=== PATIENT | male | born 1955 | race Caucasian/White ===

== ENCOUNTER 2018-04-04 08:16 | Inpatient (IN) | payer OTHER ==
[~2018-04-04] VITALS: Ht 170.2 cm; Wt 99.3 kg
[2018-04-04] MEDS ORDERED: ELIQUIS5 MG PO ×2 (09:20→09:23)
[2018-04-04] MEDS ORDERED: TOPROL XL25 MG PO (09:20)
[2018-04-04] MEDS ORDERED: LIPITOR 20 MG T20 M1 PO (09:22)
[2018-04-04] MEDS ORDERED: CARTIA XT240 M1 PO (09:24)
[2018-04-04 09:25] VITALS: BP 137/86
[2018-04-04 09:46] LABS: ALBUMIN 3.8 g/dL (3.4-5.0); ALKALINE PHOSPHATASE 91 U/L (46-116); ANION GAP 3 mmol/L (7-16); BUN 17 mg/dL (7-18); CALCIUM 9.1 mg/dL (8.5-10.1); CHLORIDE 108 mmol/L (98-107); CHOLESTEROL 169 mg/dL (<200); CO2 30 mmol/L (21-32); CREATININE 1.1 mg/dL (0.6-1.3); DIRECT BILIRUBIN 0.1 mg/dL (<0.1-0.3); GLUCOSE 102 mg/dL (70-99); HDL CHOLESTEROL 41 mg/dL (>40); LDL CHOLESTEROL 107 mg/dL (<100); POTASSIUM 4.8 mmol/L (3.5-5.1); SGOT 26 U/L (15-37); SGPT 35 U/L (30-65); SODIUM 141 mmol/L (136-145); TC:HDL 4.1 Ratio (Not establshd); TOTAL BILIRUBIN 0.8 mg/dL (<0.1-1.0); TOTAL PROTEIN 7.4 g/dL (6.4-8.2); TRIGLYCERIDE 107 mg/dL (<150); VLDL 21 mg/dL (<40)
[2018-04-04 09:47] LABS: SERUM ASSESSMENT Clear
[2018-04-04 16:00] VITALS: BP 95/58
--- NOTE | 2018-04-04 17:36 | NUR ---
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
[2018-04-04 20:00] VITALS: BP 108/72
[2018-04-05] VITALS: BP 123/69
[2018-04-05 04:00] VITALS: BP 106/80
--- NOTE | 2018-04-05 05:23 | NUR ---
ASSUMED PT CARE AT 1930, PT IS A&OX4, PT IS TRACING AFIB ON THE MONTIOR, ON RA SATTING MID TO HIGH 90'S PT IS UP AD MICHAELA IN HIS ROOM APPEARS TO BE STABLE ON HIS FEET. PT DENIES ANY PAIN OR NEEDS AT THIS TIME. BED IN LOW POSITON, CALL LIGHT IN REACH, HOURLY ROUNDING COMPLETED FOR PT SAFETY.
[2018-04-05 08:00] VITALS: BP 138/75
[2018-04-05 12:00] VITALS: BP 120/79
--- NOTE | 2018-04-05 13:37 | EKG ---
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1955 Requested By: Avila Miller Order Number: [id number] Reading MD: Mateo Urbina Measurements Intervals [place] Rate: 81 P: [place]: QRS: -20 QRSD: 109 T: -50 QT: 363 QTc: 422 Interpretive Statements Atrial fibrillation Ventricular premature complex Borderline left axis deviation Low voltage, precordial leads RSR' in V1 or V2, probably normal variant Borderline T abnormalities, diffuse leads No previous ECG available for comparison Electronically Signed On 04-05-2018 13:37:31 CDT by Mateo Urbina [email or web address] <ELECTRONICALLY SIGNED> By: Mateo Urbina MD, [facility] 04/05/18 1337 0958 [id number] Mateo Urbina MD, [facility] /EPI
--- NOTE | 2018-04-05 14:32 | EKG ---
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1955 Requested By: Avila Miller Order Number: [id number] Reading MD: Mateo Urbina Measurements Intervals [place] Rate: 87 P: [place]: QRS: -30 QRSD: 109 T: -25 QT: 379 QTc: 456 Interpretive Statements Atrial fibrillation Left axis deviation Low voltage, precordial leads RSR' in V1 or V2, probably normal variant Borderline T abnormalities, diffuse leads No previous ECG available for comparison Electronically Signed On 04-05-2018 14:31:58 CDT by Mateo Urbina [email or web address] <ELECTRONICALLY SIGNED> By: Mateo Urbina MD, FACC 04/05/18 1431 0849 0849 Mateo Urbina MD, [facility] /EPI
--- NOTE | 2018-04-05 14:58 | NUR ---
MET WITH PT TO DISCUSS HOME SITUATION/DC PLANNING. PT LIVES WITH SPOUSE, IS ACTIVE AND INDEPENDENT. DOESN'T USE ANY DME OR HH. HE PLANS TO RETURN HOME AT DC. WILL FOLLOW
--- NOTE | 2018-04-05 18:46 | NUR ---
JAYY RESTING IN BED. UP AD MICHAELA. VITAL SIGNS STABLE. PATIENT IN NOAPPARENT DISTRESS AT THIS TIME. AMIODARONE LOADING IN PREPARATION OF A HAJA CARDIOVERSION ON WEDNESDAY. HOURLY ROUNDING COMPLETED FOR PATIENT SAFETY.
[2018-04-05 20:29] VITALS: BP 109/74
[2018-04-06] VITALS (15 sets, daily range): BP systolic 93–134; BP diastolic 64–96
--- NOTE | 2018-04-06 06:45 | NUR ---
Pt NPO since MN for HAJA cardioversion scheduled for today. Reports he had little sleep overnight (water line repairs from [id number] overnight). VSS. Remains in Afib per monitor, rate 70s. No complaints. Will continue to monitor.
--- NOTE | 2018-04-06 10:00 | NUR ---
RECEIVED REPORT FROM ALETA AND ASSUMED CARE OF PT @ 7288.PT IS A/O,VSS,TRACING AFIB ON THE MONITOR.LUNG SOUNDS ARE CLEAR.LAST BM WAS YESTERDAY.IV RIGHT FOREARM PATENT AND SALINE LOCKED.PT IS CALM AND COOPERATIVE WITH NO C/O PAIN AT TIME OF ASSESSMENT.UP AD MICHAELA IN ROOM.CALL LIGHT WITHIN REACH.NPO STATUS MAINTAINED.PT WAITING FOR HAJA PROCEDURE THIS AFTERNOON.PT LEFT RESTING IN RECLINER.WILL CONTINUE TO MONITOR.
--- NOTE | 2018-04-06 16:41 | TEE ---
[facility] [address] [place] [address] TRANSESOPHAGEAL ECHOCARDIOGRAM Name: TODD GRAY Room: [address] IN [facility]#: [id number] Admission: 04/04/18 Attend Phys: Abran Farr Discharge: Date of : 51 Date of Service: 04/06/18 1641 Report #: [id number] THIS REPORT FOR: //name// APPROVED REPORT Study performed: 04/06/2018 14:55:41 EXAM: Transesophageal Echocardiogram Patient Location: In-Patient Room #: [facility] Status: routine BSA: 2.10 HR: 74 bpm BP: 102/67 mmHg Rhythm: Atrial Fibrillation Other Information Study Quality: Good Indications Atrial Fibrillation Echo Enhancing Agent Indication: Rule out Shunt Agent(s) / Amount(s) Used: Agitated Saline 10 cc Procedure After obtaining informed consent, patient underwent transesophageal echo in the [employer]. Type of Sedation : Conscious Sedation Sedation was administered by Jillian Perez RN. Sedation start time: 1504 Case end Time: 1520 Sedation was achieved intravenously with: Versed (4) Fentanyl (50) Transesophageal probe was inserted and advanced into esophagus without difficulty by Mateo Urbina MD, FACC. Echo enhancement indication: R/O Septal defect. Echo enhancement agent administered: Agitated Saline The HAJA was performed without complications. Synchronized Cardioversion acheived with 300 Joules after 2 attempt(s). Rhythm following Synchronized Cardioversion: Normal Sinus Rhythm Throughout the procedure, the blood pressure, pulse oximetry, cardiac rhythm, and rate were monitored. The patient tolerated the procedure without adverse effects. Recovery [address] [address] TRANSESOPHAGEAL ECHOCARDIOGRAM Name: TODD GRAY Room: [address] IN [facility].#: [id number] Admission: 04/04/18 Attend Phys: Abran Farr Discharge: Date of : 51 Date of Service: 04/06/18 1641 Report #: [id number] from conscious sedation was uneventful and vital signs were stable. Left Ventricle The left ventricle is normal size. There is normal LV segmental wall motion. There is normal left ventricular wall thickness. Left ventricular systolic function is normal. The left ventricular ejection fraction is within the normal range. No left ventricle thrombus noted on this study. LVEF is 50-55%. Right Ventricle The right ventricle is normal size. The right ventricular systolic function is normal. Atria Left atrium is dilated. No thrombus is visualized in the left atrium or appendage. Interatrial septum is intact without evidence of ASD or PFO.Negative bubble study. Right atrium is dilated. Aortic Valve The aortic valve is normal in structure. No aortic regurgitation is present. There is no aortic valvular vegetation. There is no aortic valvular stenosis. Mitral Valve The mitral valve is normal in structure. Trace mitral regurgitation. There is no evidence of mitral valve vegetations. No evidence of mitral valve stenosis. There is no evidence of mitral valve prolapse. Tricuspid Valve The tricuspid valve is normal in structure. There is no tricuspid valve regurgitation noted. There is no tricuspid valve vegetations. Pulmonic Valve The pulmonary valve is normal in structure. There is no pulmonic valvular regurgitation. There is no pulmonic valve vegetations. Great Vessels The aortic root is normal in size. Pericardium There is no [place] [address] TRANSESOPHAGEAL ECHOCARDIOGRAM Name: TODD GRAY Room: [address] IN ..#: [id number] Admission: 04/04/18 Attend Phys: Abran Farr Discharge: Date of : 51 Date of Service: 04/06/181640 Report #: [id number] <Conclusion> LVEF is 50-55%. There is normal LV segmental wall motion. Left atrium is dilated. No thrombus is visualized in the left atrium or appendage. Interatrial septum is intact without evidence of ASD or PFO.Negative bubble study. <ELECTRONICALLY SIGNED> By: Mateo Urbina MD, FACC 04/06/181640 40 1641 Mateo Urbina MD, FACC /INF
--- NOTE | 2018-04-06 18:16 | NUR ---
VSS,CARDIAC MONITORING IN PLACE NOW TRACING SR AFTER HAJA CARDIOVERSION.PT PROGRESSING TOWARDS GOALS.DENIED PAIN.PT NOW ON REGULAR DIET WITH NO COMPLICATIONS EATING AFTER HAJA PROCEDURE.PT INFORMED OF PLAN OF CARE AND COMMUNICATES UNDERSTANDING.HOURLY ROUNDING COMPLETED FOR PT SAFETY.CALL LIGHT WITHIN REACH.WILL CONTINUE TO MONITOR FOR DURATION OF SHIFT.
[2018-04-07] VITALS: BP 101/67
[2018-04-07 04:00] VITALS: BP 113/77
--- NOTE | 2018-04-07 06:26 | NUR ---
Pt reports he slept "on and off" overnight. VSS. SB-SR per monitor. Reports he is hopeful of being discharged today. Will continue to monitor.
[2018-04-07 07:40] VITALS: BP 125/66
[2018-04-07 09:20] VITALS: BP 125/66
--- NOTE | 2018-04-07 09:53 | NUR ---
RECEIVED REPORT FROM ALETA AND ASSUMED CARE OF PT @ 1178.PT IS A/O,VSS,TRACING SR WITH 1ST DEGREE ON THE MONITOR.LUNG SOUNDS ARE CLEAR DIMINSHED.LAST BM WAS YESTERDAY.IV REMOVED DUE TO INFILTRATION.PT IS CALM AND COOPERATIVE WITH NO C/O PAIN AT TIME OF ASSESSMENT.UP AD MICHAELA IN ROOM.PT LEFT RESTING IN BED WITH CALL LIGHT WITHIN REACH.WILL CONTINUE TO MONITOR.METOPROLOL HELD DUE TO LOW HEART RATE. PT OK FOR DISCHARGE PER CARDIOLOGY.
--- NOTE | 2018-04-07 10:20 | NUR ---
PT OK FOR DISCHARGE.PAPERWORK COMPLETED AND GIVEN TO PT.IV REMOVED THIS AM.HEART MONITOR REMOVED AND RETURNED TO NURSING STATION.FOLLOW UP APPOINTMENTS SCHEDULED WITH CARDIOLOGY.ALL PERSONAL BELONGINGS PACKED AND TAKEN WITH PT.PT WHEELED OUT WIHT BY NURSING STAFF TO PERSONAL VEHICLE.
[2018-04-07] MEDS ORDERED: AMIODARONE HCL100 MG PO (10:29)
--- NOTE | 2018-04-07 12:58 | EKG ---
[place] [address] ELECTROCARDIOGRAM REPORT Name: TODD GRAY Room: [address] IN [facility]#: [id number] Admission: 04/04/18 Attend Phys: Avila Miller MD, Discharge: 04/07/18 Date of : 51 Report #: [id number] THIS REPORT FOR: //name// 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1955 Requested By: Avila Miller Order Number: [id number] Reading MD: Avila Miller Measurements Intervals [place] Rate: 76 P: [place]: QRS: -37 QRSD: 112 T: -22 QT: 428 QTc: 482 Interpretive Statements Atrial fibrillation Borderline IVCD with LAD Low voltage, precordial leads RSR' in V1 or V2, right VCD Borderline T abnormalities, inferior leads Borderline prolonged QT interval Compared to ECG 04/05/2018 08:49:09 Left-axis deviation no longer present T-wave abnormality still present Electronically Signed On 04-07-2018 12:58:31 CDT by Avila Miller [email or web address] <ELECTRONICALLY SIGNED> By: Avila Miller MD, FAC 04/07/18 1258 1112 1112 Avila Miller MD, [facility] /EPI
--- NOTE | 2018-04-07 13:34 | CARD ---
[facility] [address] [place] [address] CARDIAC CATH REPORT Name: TODD GRAY Room: [address] IN ..#: [id number] Admission: 04/04/18 Attend Phys: Avila Miller MD, Discharge: 04/07/18 Date of : 51 Report #: [id number] THIS REPORT FOR: //name// CC: Avila Dee [facility] DATE OF SERVICE: 04/06/2018 INDICATION: Atrial fibrillation. CONSENT: The risks and benefits of the procedure described to patient in lay terms. The patient elects to proceed. PROCEDURE: Transesophageal echocardiogram was performed per protocol. No thrombus was noted. Please see full report for this procedure. The patient's level of sedation was reassessed following withdrawal of the transesophageal probe and another 2 mg of IV Versed was administered. Heart rate, oxygenation, blood pressure and respiratory rate were monitored per protocol. 200 joules initially was utilized as an attempt to convert him from atrial fibrillation, but this was unsuccessful. 300 joules was utilized again after reassessing level of sedation. This was successfully converted to a sinus bradycardia, heart rate 55-60 beats per minute. IMPRESSION: 1. Atrial fibrillation. 2. Successful direct current cardioversion. <ELECTRONICALLY SIGNED> By: Mateo Urbina MD, [facility] 04/07/18 1334 1613 [id number] Urbina MD, FACC /nt
--- NOTE | 2018-04-07 15:21 | D ---
[facility] [address] [place] [address] DISCHARGE SUMMARY Name: TODD GRAY Room: [address] IN ..#: [id number] Admission: 04/04/18 Attend Phys: Avila Miller MD, Discharge: 04/07/18 Date of : 51 Report #: [id number] THIS REPORT FOR: //name// CC: Avila Irizarryie Keshav DATE OF SERVICE: 04/07/2018 FINAL DISCHARGE DIAGNOSES: 1. Persistent atrial fibrillation. 2. Hypertension. 3. Hyperlipidemia. PROCEDURES: 04/06/2018 -- transesophageal echocardiographic evaluation with a DC cardioversion. The patient is a very pleasant 62-year-old laughlin who has had persistent atrial fibrillation for several months that has been refractory to a type 1C agents. He has been anticoagulated with Eliquis. In the context of a decreased exercise tolerance, he elected to come into the hospital for a cardioversion after amiodarone loading. He received amiodarone 600 mg b.i.d. initially and 800 mg b.i.d. for 2 additional days. With the DC cardioversion on 04/06 x 2, with the rhythm converting to a sinus rhythm and a mildly bradycardic rate. He remained in sinus rhythm, and his beta gaurav and diltiazem were discontinued, amiodarone will be continued at 400 mg b.i.d. He ambulated in the hallways without difficulty and felt well. His rhythm remained sinus until the morning after the procedure. He was discharged to home on 04/07/2018 on amiodarone 400 mg b.i.d., apixaban or Eliquis 5 mg b.i.d., atorvastatin 20 mg daily and with a previously utilized beta gaurav and diltiazem having been discontinued. He is scheduled to return to see my nurse practitioner in 1 week, and I will plan to see him in 3 weeks for subsequent tapering of his amiodarone. Thus, the patient is discharged to home in stable condition on the aforementioned medications with followup as iterated above with the plan to gradually taper the amiodarone with hopes of preserving a sinus mechanism, in which he remains. The patient is discharged from [facility] on 04/07/2018. <ELECTRONICALLY SIGNED> By: Avila Miller MD, FACC 04/07/18 1521 0941 [id number] Miller MD, FACC /nt
== END 2018-04-07 10:38 | disposition home or self-care (01) | DRG 310 ==
LOC: M.2W 08:16
PROVIDERS: ADMIT Internal Medicine
PROC: 5A2204Z Restoration of Cardiac Rhythm, Single (ICD-10-PCS; principal; 2018-04-07)
DX: I48.1 Persistent atrial fibrillation (principal); I10 Essential (primary) hypertension; E78.5 Hyperlipidemia, unspecified; Z79.01 Long term (current) use of anticoagulants